=== PATIENT | female | born 1975 | race Caucasian/White ===

== ENCOUNTER 2019-06-30 05:50 | Day surgery (SDC) | payer BC, MEDICAID ==
[~2019-06-30 05:50] MED LIST: BUPIVACAINE/PF (0.5%) 5 MG/1 ML 30 ML VIAL INFILTRATI ONE; LACTATED RINGERS 1,000 ML IV SCH
[2019-06-30] MEDS ORDERED: MIDAZOLAM 2 MG/2 ML INJ IV NR (06:00)
[2019-06-30] MEDS ORDERED: CELECOXIB 200 MG CAP PO NR (06:00)
[2019-06-30] MEDS ORDERED: GABAPENTIN 300 MG CAP PO NR (06:00)
[2019-06-30] MEDS ORDERED: BACTERIOSTATIC SODIUM CHLORIDE 0.9% 30 ML VIAL INFILTRATI ONE (06:55)
[2019-06-30] MEDS ORDERED: BUPIVACAINE/PF (0.5%) 5 MG/1 ML 30 ML VIAL INFILTRATI ONE ×2 (07:09→09:20)
[2019-06-30] MEDS ORDERED: ONDANSETRON 4 MG/2 ML INJ IV PRN (07:16)
[2019-06-30] MEDS ORDERED: HYDROmorphone 1 MG/1 ML INJ IV PRN (07:16)
--- NOTE | 2019-06-30 07:16 | Anesthesia Day of Surgery ---
Anesthesia Day of Surgery - Day of Surgery Patient Examined: Yes Patient H&P Reviewed: Yes Patient is NPO: Yes
--- NOTE | 2019-06-30 07:19 | Anesthesia Consultation ---
Anesthesia Consult and Med Hx Date of service: 06/30/19 - Airway Anesthetic Teeth Evaluation: Good ROM Head & Neck: Adequate Mental/Hyoid Distance: Adequate Mallampati Class: Class II Intubation Access Assessment: Probably Good - Pre-Operative Health Status ASA Pre-Surgery Classification: ASA2 Proposed Anesthetic Plan: General - Pulmonary Hx Smoking: Yes (Former) - Central Nervous System Hx Psychiatric Problems: No - Gastrointestinal Hx Gastroesophageal Reflux Disease: Yes - Other Systems Hx Alcohol Use: Yes (Occas) Hx Cancer: No
[2019-06-30] MEDS ORDERED: FAMOTIDINE 20 MG/2 ML INJ IV ONE (07:22)
[2019-06-30] MEDS ORDERED: LIDOCAINE MPF (2%) 20 MG/1 ML VIAL 5 ML ONE (07:33)
[2019-06-30] MEDS ORDERED: ROCURONIUM 50 MG/5 ML INJ IV ONE (07:33)
[2019-06-30] MEDS ORDERED: PROPOFOL 200 MG/20 ML VIAL IV ONE (07:34)
[2019-06-30] MEDS ORDERED: fentaNYL 100 MCG/2 ML INJ ONE ×2 (07:34→08:57)
[2019-06-30] MEDS ORDERED: dexAMETHasone 20 MG/5 ML VIAL ONE (08:56)
[2019-06-30] MEDS ORDERED: ONDANSETRON 4 MG/2 ML INJ ONE (08:56)
[2019-06-30] MEDS ORDERED: NEOSTIGMINE 10MG/10 ML INJ MDV ONE (09:00)
[2019-06-30] MEDS ORDERED: GLYCOPYRROLATE 0.4 MG/2 ML INJ ONE (09:00)
--- NOTE | 2019-06-30 09:42 | Post Operative Note ---
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 Tubes and ovaries WNL. Pt also had some LUQ omental scarring to the ant peritoneal wall. No other anomalies noted in general abd/pelvic survey. Procedure: LAP BTL with Filschie clips. Procedure: Patient taken to the operating room and prepped and draped in usual fashion. An acorn uterine manipulator was placed along with the CO2 tenaculum. Trevizo also placed. Attention was then turned to the abdomen. During her pelvic exam in the OR uterus was palpable to almost the level of the umbilicus. It was maybe 2 cm below the level of the umbilicus. As result the first trocar site was made in the left upper quadrant. This was a 5 mm incision that was made about 2 finger breaths under the costal margin in the midclavicular line. Abdomen tented up and the Veress needle was placed in the abdominal cavity. Abdomen appropriately insufflated with CO2 gas. Veress needle removed and the 5 mm trocar was placed. The camera had to maneuver around some left upper quadrant omental adhesions to visualize the rest of the abdomen and pelvis. Patient placed in Trendelenburg at this point. Attention was turned to the umbilicus where an 8 mm incision was made and the 8 mm trocar was placed under direct visualization without difficulty. Attention was first turned to the right fallopian tube where the Filshie clip was applied. The full width of the tube was encompassed. Good hemostasis noted. This was then done in the exact same fashion on the left side with equal success. Full width of the tube was encompassed and good hemostasis noted. The abdomen was fully desufflated at this time and the trochars were removed. Trocar sites closed with 4-0 Monocryl in a subcuticular fashion followed by Marcaine. [address] uterine manipulator was removed and the procedure was concluded at this point. Patient tolerated the procedure well. All instrument and lap counts were correct. Patient taken to the recovery room in stable condition. Anesthesia: ALEJANDRA Surgeon: GO NICHOLAS Estimated blood loss: minimal Pathology: none Condition: stable Disposition: PACU
[2019-06-30] MEDS ORDERED: ACETAMINOPHEN W/CODEINE 300-30 MG TAB PO PRN (09:54)
[2019-06-30 11:03] VITALS: BP 138/56
--- NOTE | 2019-06-30 21:51 | Post Anesthesia Evaluation ---
- Post Anesthesia Evaluation Patient Participated: Yes Airway Patent: Yes Stable Respiratory Function: Yes Nausea/Vomiting: No Temp > 96.8F: Yes Pain Manageable: Yes Adequeate Hydration: Yes Anesthesia Complications: No Block Receding Appropriately: Not Applicable Patient on Ventilator: No
== END 2019-06-30 05:51 | disposition home or self-care (01) ==
LOC: OR 05:50
PROVIDERS: ATTEND Obstetrics & Gynecology
DX: Z30.2 Encounter for sterilization (principal); K21.9 Gastro-esophageal reflux disease without esophagitis; N76.0 Acute vaginitis; Z72.89 Other problems related to lifestyle; Z98.890 Other specified postprocedural states; Z79.899 Other long term (current) drug therapy; Z87.891 Personal history of nicotine dependence; Z90.49 Acquired absence of other specified parts of digestive tract; Z98.891 History of uterine scar from previous surgery
CPT/HCPCS: 58671; 81025; J1100; J1170; J2250; J2405; J2704; J2710; J3010; J7120